=== PATIENT | male | born 1960 | race Caucasian/White ===

== ENCOUNTER 2017-09-13 16:27 | Day surgery (SDC) | payer OTHER ==
[2017-09-13] VITALS (7 sets, daily range): BP systolic 131–161; BP diastolic 89–98
[~2017-09-13] VITALS: Ht 190.5 cm; Wt 102.2 kg
[2017-09-13] MEDS ORDERED: ceFAZolin 1000mg inj ONE (16:42)
[2017-09-13] MEDS ORDERED: epiNEPHrine 1 mg/ml inj ONE (16:42)
[2017-09-13] MEDS ORDERED: ringers solution, lacted 1,000 ML IV SCH (16:42)
[2017-09-13] MEDS ORDERED: BUPIVAcaine/PF 2.5 mg/ml (0.25%) 30ml vial ONE (16:42)
[2017-09-13] MEDS ORDERED: proCHLORperazine 10 MG/2 ml inj IV PRN (16:45)
[2017-09-13] MEDS ORDERED: meperidine/PF 50mg/ml syringe IV PRN ×3 (16:45)
[2017-09-13] MEDS ORDERED: morphine 4 MG/ML inj SYRINge IV PRN ×2 (16:45)
[2017-09-13] MEDS ORDERED: ondansetron/PF 4mg/2ml inj IV PRN (16:45)
[2017-09-13] MEDS ORDERED: normal saline 1000ML IV soln IV ONE (16:55)
[2017-09-13] MEDS ORDERED: piperacillin/tazo 4.5gm/100ml 100 ML IV ONE (17:00)
[2017-09-13] MEDS ORDERED: cefTRIAXone 1g/NS 100ml IVPB 100 ML IV ONE (17:15)
[2017-09-13] MEDS ORDERED: atropine 0.4 mg/ml 20ml vial ONE (17:30)
[2017-09-13] MEDS ORDERED: sevoflurane 250ml liquid IH ONE (17:30)
[2017-09-13 17:34] LABS: BASOPHILS # (AUTO) 0.1 X10'3 (0-0.2); BASOPHILS % (AUTO) 0.7 % (0-1); EOSINOPHILS # (AUTO) 0.3 X10'3 (0-0.9); EOSINOPHILS % (AUTO) 3.3 % (0-6); HEMATOCRIT 47.3 % (42.0-52.0); HEMOGLOBIN 16.4 g/dl (14.0-17.9); LYMPHOCYTES # (AUTO) 2.8 X10'3 (1.1-4.8); LYMPHOCYTES % (AUTO) 31.7 % (21-51); MEAN CORPUSCULAR HEMOGLOBIN 32.4 PG (27.0-31.0); MEAN CORPUSCULAR HGB CONC 34.8 % (33.0-36.5); MEAN CORPUSCULAR VOLUME 93.3 FL (78-98); MEAN PLATELET VOLUME 8.1 FL (7.4-10.4); MONOCYTES # (AUTO) 0.6 X10'3 (0-0.9); MONOCYTES % (AUTO) 6.7 % (2-12); NEUTROPHILS # (AUTO) 5.1 X10'3 (1.8-7.7); NEUTROPHILS % (AUTO) 57.6 % (42-75); PLATELET COUNT 218 X10'3 (140-440); RED BLOOD COUNT 5.07 X10'6 (4.70-6.10); RED CELL DISTRIBUTION WIDTH 13.6 % (11.5-14.5); WHITE BLOOD COUNT 8.9 X10'3 (4.5-11.0)
[2017-09-13] MEDS ORDERED: normal saline 1000ml 1,000 ML IV SCH (17:42)
[2017-09-13] MEDS ORDERED: fentaNYL/PF 50MCG/1 ML 2ML syringe ONE (17:43)
[2017-09-13] MEDS ORDERED: midazolam 2 mg/2 ml injection ONE (17:43)
[2017-09-13 17:44] LABS: PARTIAL THROMBOPLASTIN TIME 25 SECONDS (22-32); PROTHROMBIN TIME 10.7 SECONDS (9.0-12.0)
[2017-09-13] MEDS ORDERED: propofol inj 20 ML IV ONE (17:44)
[2017-09-13] MEDS ORDERED: LIDOcaine 1%/PF (10mg/ml) 5ml vial ONE (17:44)
[2017-09-13] MEDS ORDERED: ketorolac trometh. 30mg/ml inj. ONE (17:45)
[2017-09-13] MEDS ORDERED: rocuronium 10mg/ml inj IV ONE (17:45)
[2017-09-13 17:52] LABS: CLARITY,URINE CLEAR (Clear); COLOR,URINE YELLOW (Yellow); GLUCOSE, URINE NEGATIVE (Neg); KETONES,URINE NEGATIVE (Neg); LEUKOCYTE ESTERASE ,URINE NEGATIVE (Neg); NITRITES, URINE NEGATIVE (Neg); OCCULT BLOOD,URINE TRACE-INTACT (Neg); PH,URINE 5.5 (4.8-8.0); PROTEIN,URINE NEGATIVE (Neg); UROBILINOGEN,URINE 0.2 E.U/dL (0.2-1.0)
[2017-09-13 17:53] LABS: UA COLLECTION TYPE CLN CATCH MIDSTREAM
[2017-09-13 18:02] LABS: RBC,URINE 0-2 /HPF (0-2); WBC,URINE 0-4 /HPF (0-4)
[2017-09-13 18:03] LABS: BACTERIA,URINE NONE SEEN /HPF (Neg); SQUAMOUS EPITHELIAL CELL,UR FEW /LPF (FEW)
[2017-09-13 18:05] LABS: ALANINE AMINOTRANSFERASE 31 U/L (12-78); ALBUMIN 4.1 G/DL (3.4-5.0); ALBUMIN/GLOBULIN RATIO 1.2 (1.1-1.5); ALKALINE PHOSPHATASE 67 IU/L (46-116); ANION GAP 11 (8-16); ASPARTATE AMINO TRANSFERASE 27 U/L (10-37); BILIRUBIN,TOTAL 0.6 MG/DL (0.1-1.0); BLOOD UREA NITROGEN 13 MG/DL (7-18); BUN/CREATININE RATIO 16.5 (5.4-32.0); CALCIUM 9.1 MG/DL (8.5-10.1); CHLORIDE 105 MMOL/L (99-107); CREATININE 0.79 MG/DL (0.60-1.10); GLUCOSE 89 MG/DL (70-104); LIPASE 190 U/L (73-393); POTASSIUM 4.1 MMOL/L (3.5-5.1); SODIUM 144 MMOL/L (135-145); TOTAL CARBON DIOXIDE 28.2 MMOL/L (24-32); TOTAL PROTEIN 7.5 G/DL (6.4-8.2); eGFR > 90 ML/MIN
[2017-09-13] MEDS ORDERED: meperidine/PF 50mg/ml syringe ONE (18:40)
== END 2017-09-13 19:58 | disposition home or self-care (01) ==
LOC: ER 16:28 → PAS 16:29 → ER 19:58
PROVIDERS: ATTEND Surgery
DX: K80.12 Calculus of gallbladder with acute and chronic cholecystitis without obstruction (principal); Z79.899 Other long term (current) drug therapy; F17.210 Nicotine dependence, cigarettes, uncomplicated; Z79.82 Long term (current) use of aspirin
CPT/HCPCS: 36415; 71045; 80053; 81001; 83605; 83690; 83735; 84145; 85025; 85610; 85730; 93005; 96365; 96375; 99285; A7000; J0171; J0461; J0690; J1885; J2001; J2175; J2250; J2270; J2543; J2704; J3010; J3490; J7120

== ENCOUNTER 2019-06-12 11:44 | Emergency (ER) | payer OTHER ==
[~2019-06-12] VITALS: Ht 190.5 cm; Wt 118.5 kg
[2019-06-12 11:57] VITALS: BP 133/85
[2019-06-12] MEDS ORDERED: ondansetron 4mg rapidly disintigrating tab PO ONE (12:55)
[2019-06-12] MEDS ORDERED: HYDROcodone/acetaminophen 5mg/325mg tablet PO ONE (12:55)
[2019-06-12] MEDS ORDERED: IBUP-1984 PO (13:14)
[2019-06-12] MEDS ORDERED: CYCL-1 PO (13:14)
== END 2019-06-12 14:28 | disposition home or self-care (01) ==
LOC: ER 11:46
DX: M54.2 Cervicalgia (principal); R51 Headache; Z79.899 Other long term (current) drug therapy; V89.2XXA Person injured in unspecified motor-vehicle accident, traffic, initial encounter; Y93.89 Activity, other specified; Y92.488 Other paved roadways as the place of occurrence of the external cause; Y99.8 Other external cause status
CPT/HCPCS: 70450; 70490; 72125; 99284